=== PATIENT | male | born 1985 | race American Indian/Alaskan Native ===

== ENCOUNTER 2018-06-04 19:34 | Emergency (ER) | payer SELFPAY ==
[2018-06-04 19:42] VITALS: BP 122/76; PULSE 84; TEMP 99; BMI 20.9
--- NOTE | 2018-06-04 20:02 | PDOC ---
History of Present Illness - General Chief Complaint: Wound Stated Complaint: ABSCESS Time Seen by Provider: 06/04/18 19:54 - History of Present Illness Initial Comments: 33-year-old male denies comorbidities presents for evaluation of a painful mass on his right buttock 3 days. No other associated symptoms. 06/04/18 19:59 Past History - Past Medical History Allergies/Adverse Reactions: Allergies Allergy/AdvReac Type Severity Reaction Status Date / Time No Known Allergies Allergy Verified 06/04/18 19:42 Home Medications: Ambulatory Orders Benztropine Mesylate [Cogentin -] 1 mg PO BID #60 tablet 04/13/17 Haloperidol [Haldol -] 5 mg PO BID #60 tablet 04/13/17 traZODone HCL [Trazodone HCl] 100 mg PO HS #30 tablet 04/13/17 Buspirone HCl [Buspar -] 10 mg PO DAILY #90 tablet MDD 3 04/20/17 Divalproex *ER* [Depakote *ER* -] 250 mg PO TID #15 tablet.sa MDD 3 05/11/17 Clotrimazole [Lotrimin -] 1 applic TP BID #1 tube 02/05/18 Emtricitab/Rilpiviri/Tenof Ala [Odefsey Tablet] 1 tab PO DAILY #30 tablet Multivitamin,Ther and Minerals [Vitamin and Minerals] 1 tab PO DAILY #30 tablet 02/05/18 Cephalexin [Keflex] 500 mg PO QID #40 capsule 06/04/18 Ibuprofen [Motrin -] 600 mg PO TID #30 tablet 06/04/18 Sulfamethoxazole/Trimethoprim [Bactrim Ds -] 1 tab PO BID #14 tablet 06/04/18 Anemia: Yes Asthma: No Cancer: No Cardiac Disorders: No CVA: No COPD: No CHF: No Dementia: No Diabetes: No GI Disorders: Yes (?hemorrhoids) Disorders: Yes (hx abscess??) HTN: No Hypercholesterolemia: No Liver Disease: No Seizures: No Thyroid Disease: No - Suicide/Smoking/Psychosocial Hx Smoking Status: No Smoking History: Unknown if ever smoked Have you smoked in the past 12 months: No Number of Cigarettes Smoked Daily: 0 Cigars Per Day: 0 Information on smoking cessation initiated: No Hx Alcohol Use: Yes Drug/Substance Use Hx: No Substance Use Type: Alcohol Hx Substance Use Treatment: No Review of Systems - Review of Systems Integumentary: Yes: See HPI, Lesions All Other Systems: Reviewed and Negative *Physical Exam - Vital Signs Last Vital Signs Temp Pulse Resp BP Pulse Ox 99.0 F 84 17 122/76 99 06/04/18 19:39 06/04/18 19:39 06/04/18 19:39 06/04/18 19:39 06/04/18 19:39 - Physical Exam Comments: Right buttock skin is mildly ear thymic there is a tender nonfluctuant indurated area with central eschar which is dry without drainage. The surrounding skin is normal color and temperature.. The mass is about 2 cm in circumference 06/04/18 20:00 Medical Decision Making - Medical Decision Making This is a hard indurated cellulitis I recommended warm compresses I placed him on by mouth and Bactrim and Keflex I will have her follow-up with general surgery should he require I&D with always the option to return to the emergency room for I&D is needed 06/04/18 20:00 *DC/Admit/Observation/Transfer Diagnosis at time of Disposition: Cellulitis and abscess of buttock - Discharge Dispostion Disposition: HOME Condition at time of disposition: Stable Decision to Admit order: No - Referrals Referrals: Caity Lopez MD [Staff Physician] - - Patient Instructions Additional Instructions: Warm compresses in the area 5-6 times a day. Please take the antibiotics as directed. Follow-up with general surgery in 2-3 days for further evaluation and treatment options. The Motrin will help with your pain its 3 times a day with food. Stop the medication if it bothers her stomach. Please finish all the antibiotics as directed. If the area becomes soft and starts to drain please come back to the emergency room. In the meantime follow-up with general surgery in 2-3 days for further evaluation and treatment options. - Post Discharge Activity
== END 2018-06-04 20:11 | disposition home or self-care (01) ==
LOC: JERFT 19:34
DX: L03.317 Cellulitis of buttock (principal)
CPT/HCPCS: 99281-25

== ENCOUNTER 2018-08-25 17:42 | Emergency (ER) | payer SELFPAY ==
[2018-08-25 17:50] VITALS: BP 118/80; PULSE 83; TEMP 98.5; BMI 20.9
[2018-08-25] MEDS ORDERED: LIDOCAINE 1%/EPI 1:100000 (50 ML MULTI DOSE VIAL) INF ONE (18:31)
--- NOTE | 2018-08-25 18:41 | PDOC ---
History of Present Illness - General Chief Complaint: Abscess Boil Stated Complaint: WOUND History Source: Patient Exam Limitations: No Limitations - History of Present Illness Initial Comments: 08/25/18 18:32 Patient is 33 year old male with h/o bipolar disorder, HIV +, c/o painfull swelling which is draining to the right hip x 1 week. States recently has been having these swelling which open now area healed but they still hurt. States pain is a soreness 5/10 worse if his clothes touch the area. Denies fever, chills, nausea, vomiting. PMHX: as above PSOCHX: substance abuse ALL: NKDA Review of Systems: GENERAL/CONSTITUTIONAL: No fever or chills. No weakness. No weight change. HEAD, EYES, EARS, NOSE AND THROAT: No change in vision. No ear pain or discharge. No sore throat. CARDIOVASCULAR: No chest pain or shortness of breath. RESPIRATORY: No cough, wheezing, or hemoptysis. GASTROINTESTINAL: No nausea, vomiting, diarrhea or constipation. No rectal bleeding. GENITOURINARY: No dysuria, frequency, or change in urination. MUSCULOSKELETAL: No joint or muscle swelling or pain. No neck or back pain. SKIN AND BREASTS: No rash or easy bruising. NEUROLOGIC: No headache, vertigo, loss of consciousness, or loss of sensation. PSYCHIATRIC: (+) depression or anxiety. ENDOCRINE: No increased thirst. No abnormal weight change. HEMATOLOGIC/LYMPHATIC: No anemia, easy bleeding, or history of blood clots. ALLERGIC/IMMUNOLOGIC: No hives or skin allergy. No latex allergy. GENERAL: [The patient is awake, alert, and fully oriented, in no acute distress. ] HEAD: [Normal with no signs of trauma.] EYES: [Pupils equal, round and reactive to light, extraocular movements intact, sclera anicteric, conjunctiva clear.] ENT: [Ears normal, nares patent, oropharynx clear without exudates. Moist mucous membranes.] NECK: [Normal range of motion, supple without lymphadenopathy, JVD, or masses.] LUNGS: [Breath sounds equal, clear to auscultation bilaterally. No wheezes, and no crackles.] HEART: [Regular rate and rhythm, normal S1 and S2 without murmur, rub.] ABDOMEN: [Soft, nontender, normoactive bowel sounds. No guarding, no rebound. No masses.] EXTREMITIES: [Normal range of motion, no edema. No clubbing or cyanosis. No cords, erythema, or tenderness.] NEUROLOGICAL: [Cranial nerves II through XII grossly intact. Normal speech, normal gait.] PSYCH: [Normal mood, normal affect.] SKIN: (+) tender, large abscess with blood and purulent discharge. Past History - Past Medical History Allergies/Adverse Reactions: Allergies Allergy/AdvReac Type Severity Reaction Status Date / Time No Known Allergies Allergy Verified 08/25/18 17:50 Home Medications: Ambulatory Orders Benztropine Mesylate [Cogentin -] 1 mg PO BID #60 tablet 04/13/17 Haloperidol [Haldol -] 5 mg PO BID #60 tablet 04/13/17 traZODone HCL [Trazodone HCl] 100 mg PO HS #30 tablet 04/13/17 Buspirone HCl [Buspar -] 10 mg PO DAILY #90 tablet MDD 3 04/20/17 Divalproex *ER* [Depakote *ER* -] 250 mg PO TID #15 tablet.sa MDD 3 05/11/17 Clotrimazole [Lotrimin -] 1 applic TP BID #1 tube 02/05/18 Emtricitab/Rilpiviri/Tenof Ala [Odefsey Tablet] 1 tab PO DAILY #30 tablet Anemia: Yes Asthma: No Cancer: No Cardiac Disorders: No CVA: No COPD: No CHF: No Dementia: No Diabetes: No GI Disorders: Yes (?hemorrhoids) Disorders: Yes (hx abscess??) HTN: No Hypercholesterolemia: No Liver Disease: No Seizures: No Thyroid Disease: No - Suicide/Smoking/Psychosocial Hx Smoking Status: No Smoking History: Unknown if ever smoked Have you smoked in the past 12 months: No Number of Cigarettes Smoked Daily: 0 Cigars Per Day: 0 Hx Alcohol Use: Yes Drug/Substance Use Hx: No Substance Use Type: Alcohol Hx Substance Use Treatment: No *Physical Exam - Vital Signs Last Vital Signs Temp Pulse Resp BP Pulse Ox 98.5 F 83 18 118/80 99 08/25/18 17:48 08/25/18 17:48 08/25/18 17:48 08/25/18 17:48 08/25/18 17:48 Moderate Sedation - Procedure Monitoring Vital Signs: Procedure Monitoring Vital Signs Temperature 98.5 F 08/25/18 17:48 Pulse Rate 83 08/25/18 17:48 Respiratory Rate 18 08/25/18 17:48 Blood Pressure 118/80 08/25/18 17:48 O2 Sat by Pulse Oximetry (%) 99 08/25/18 17:48 Medical Decision Making - Medical Decision Making 08/25/18 18:32 Patient is 33 year old male with h/o bipolar disorder, HIV +, c/o painfull swelling which is draining to the right hip x 1 week. infiltrated lidocaine and expressed some the abscess, moderate amount of drainage. Patient requesting for me to stop expressing the wound I discussed the physical exam findings, ancillary test results and final diagnoses with the patient. I answered all of the patient's questions. The patient was satisfied with the care received and felt comfortable with the discharge plan and treatment plan. The Patient agrees to follow up with the primary care physician within 24-72 hours. Inst patient to continue warm compress and express the wound. *DC/Admit/Observation/Transfer Diagnosis at time of Disposition: Abscess - Discharge Dispostion Disposition: HOME Condition at time of disposition: Stable - Referrals - Patient Instructions Printed Discharge Instructions: DI for Incision and Drainage of a Skin Abscess Additional Instructions: Your Discharge Instructions: You must call primary care physician within 24 hours to arrange follow-up. Return to the Emergency Department with any new, persistent or worsening symptoms, for fever, chills, SOB, dizziness or any other concerning changes that may occur. warm compress to the area then express the discharge from the wound. - Post Discharge Activity
== END 2018-08-25 19:29 | disposition home or self-care (01) ==
LOC: JERFT 17:42
DX: L02.415 Cutaneous abscess of right lower limb (principal); F31.9 Bipolar disorder, unspecified; Z21 Asymptomatic human immunodeficiency virus [HIV] infection status
CPT/HCPCS: 87070; 87077; 87186; 87205; 99281-25

== ENCOUNTER 2023-07-10 12:43 | Inpatient (IN) | payer OTHER ==
[2023-07-10] MEDS ORDERED: ACETAMINOPHEN 1000 MG/100 ML BAG IVPB ONE (15:01)
[2023-07-10] MEDS ORDERED: PIPERACILLIN/TAZOB 4.5 GM 4.5 GM in DEXTROSE 5%-WATER 100 ML IVPB ONE (15:03)
[2023-07-10] MEDS ORDERED: VANCOMYCIN 1,000 MG in DEXTROSE 5%-WATER - 250 ML IVPB ONE (15:03)
[2023-07-10] MEDS ORDERED: ACETAMINOPHEN INJECTION 100 ML IVPB ONE (15:47)
[2023-07-10] MEDS ORDERED: PIPERACILLIN/TAZOB 4.5 GM 4.5 GM/100 ML BAG IVPB ONE (15:48)
[2023-07-10] MEDS ORDERED: VANCOMYCIN 1 GRAM (PRE-DOCKED) 1,000 MG/250 ML BAG IVPB ONE ×2 (15:49→17:07)
[2023-07-10 16:04] LABS: VENOUS O2 SATURATION 80.7 % (70-80); VENOUS PH 7.435 (7.310-7.410)
[2023-07-10 16:09] LABS: HEMATOCRIT 38.7 % (35.4-49); HEMOGLOBIN 13.3 GM/dL (11.7-16.9); MCH 29.1 pg (25.7-33.7); MCHC 34.3 g/dl (32.0-35.9); MEAN CELL VOLUME 84.7 fl (80-96); PLATELET COUNT 319 10^3/uL (134-434); RBC 4.57 M/mm3 (4.00-5.60); RDW 13.8 % (11.9-15.9); WHITE BLOOD COUNT 8.2 K/mm3 (4.0-10.0)
[2023-07-10 16:18] LABS: INR 1.15 (0.83-1.09); PROTHROMBIN TIME (PATIENT) 13.3 SEC (9.7-13.0)
[2023-07-10 16:21] LABS: ACTIVATED PTT 32.9 SECONDS (25.2-36.5)
[2023-07-10 16:22] LABS: POTASSIUM 3.9 mmol/L (3.5-5.1)
[2023-07-10 16:25] LABS: ALBUMIN 3.8 g/dl (3.4-5.0); CALCIUM 8.7 mg/dL (8.5-10.1)
[2023-07-10 16:26] LABS: BLOOD UREA NITROGEN 13.8 mg/dL (7-18)
[2023-07-10 16:30] LABS: BILIRUBIN,TOTAL 0.9 mg/dL (0.2-1); TOT PROT 8.8 g/dl (6.4-8.2)
[2023-07-10] MEDS: VANCOMYCIN 1,000 MG in DEXTROSE 5%-WATER - 250 ML IVPB SCH (22:37)
[2023-07-10] MEDS ORDERED: PIPERACILLIN/TAZOB 3.375 GM 3.375 GM/50 ML BAG IVPB ONE (22:39)
[2023-07-10] MEDS: SODIUM CHLORIDE 1,000 ML IV SCH (22:51)
[2023-07-10] MEDS: PIPERACILLIN/TAZOB 3.375 GM 3.375 GM in DEXTROSE 5%-WATER - 50 ML IVPB SCH ×2 (22:52→22:54)
[2023-07-11] MEDS ORDERED: ACETAMINOPHEN 1000 MG/100 ML BAG IVPB ONE (00:56)
[2023-07-11] MEDS: SODIUM CHLORIDE 1,000 ML IV SCH ×2 (04:24→22:57)
[2023-07-11] MEDS: PIPERACILLIN/TAZOB 3.375 GM 3.375 GM in DEXTROSE 5%-WATER - 50 ML IVPB SCH ×4 (04:24→18:41)
[2023-07-11] MEDS ORDERED: VANCOMYCIN 1 GRAM (PRE-DOCKED) 1,000 MG/250 ML BAG IVPB SCH (05:00)
[2023-07-11 06:10] VITALS: BMI 20.5
[2023-07-11] MEDS ORDERED: CITALOPRAM HYDROBROMIDE 20 MG TABLET PO SCH (07:00)
[2023-07-11] MEDS ORDERED: CITALOPRAM HYDROBROMIDE 10 MG TABLET PO SCH (10:00)
[2023-07-11] MEDS ORDERED: MUPIROCIN CA 2% TOPICAL CREAM 15 GM TUBE TP SCH (10:00)
[2023-07-11] MEDS ORDERED: ENOXAPARIN NA (PORCINE) 40 MG/0.4 ML DISP.SYRIN SQ SCH (10:00)
[2023-07-11 10:18] LABS: HEMATOCRIT 35.4 % (35.4-49); HEMOGLOBIN 12.3 GM/dL (11.7-16.9); MCH 29.2 pg (25.7-33.7); MCHC 34.8 g/dl (32.0-35.9); MEAN CELL VOLUME 83.9 fl (80-96); PLATELET COUNT 288 10^3/uL (134-434); RBC 4.22 M/mm3 (4.00-5.60); RDW 13.7 % (11.9-15.9); WHITE BLOOD COUNT 8.9 K/mm3 (4.0-10.0)
[2023-07-11 11:19] LABS: POTASSIUM 4.4 mmol/L (3.5-5.1)
[2023-07-11] MEDS: BICTEGRAV/EMTRICIT/TENOFOV (BIKTARVY) 50-200-25 MG TABLET PO SCH (11:25)
[2023-07-11 11:39] LABS: BLOOD UREA NITROGEN 15.1 mg/dL (7-18); CALCIUM 8.4 mg/dL (8.5-10.1); MAGNESIUM 2.3 mg/dL (1.8-2.4)
[2023-07-11 11:42] LABS: PHOSPHOROUS 2.9 mg/dL (2.5-4.9)
[2023-07-11 11:43] LABS: BILIRUBIN,TOTAL 0.8 mg/dL (0.2-1); TOT PROT 7.6 g/dl (6.4-8.2)
[2023-07-11] MEDS: ACETAMINOPHEN 325 MG TABLET (FP) PO PRN ×3 (13:10→23:14)
[2023-07-11] MEDS: VANCOMYCIN/WATER FOR INJ (PEG) 1,000 MG/200 ML BAG IVPB SCH (16:34)
[2023-07-11] MEDS: VANCOMYCIN 1,000 MG in DEXTROSE 5%-WATER - 250 ML IVPB SCH (17:14)
[2023-07-11] MEDS ORDERED: CHLORHEXIDINE GLUCONATE 4% CLEANSER FOR DECOLONIZATION TP SCH (22:00)
[2023-07-11] MEDS ORDERED: traZODone HCL 50 MG TABLET (FP) PO SCH (22:00)
[2023-07-12] MEDS: PIPERACILLIN/TAZOB 3.375 GM 3.375 GM in DEXTROSE 5%-WATER - 50 ML IVPB SCH ×4 (01:58→17:35)
[2023-07-12] MEDS: VANCOMYCIN/WATER FOR INJ (PEG) 1,000 MG/200 ML BAG IVPB SCH ×2 (03:18→15:27)
[2023-07-12] MEDS: BICTEGRAV/EMTRICIT/TENOFOV (BIKTARVY) 50-200-25 MG TABLET PO SCH (08:01)
[2023-07-12] MEDS: ACETAMINOPHEN 325 MG TABLET (FP) PO PRN (08:37)
[2023-07-12] MEDS ORDERED: BUPIVACAINE HCL/PF 0.5% (5MG/ML) 10 ML VIAL ONE (08:46)
[2023-07-12] MEDS ORDERED: LIDOCAINE HCL 1%, 10 MG/ML (20ML VIAL) ONE (08:46)
[2023-07-12 09:25] LABS: HEMATOCRIT 38.6 % (35.4-49); HEMOGLOBIN 12.9 GM/dL (11.7-16.9); MCH 28.8 pg (25.7-33.7); MCHC 33.5 g/dl (32.0-35.9); MEAN CELL VOLUME 86.1 fl (80-96); PLATELET COUNT 319 10^3/uL (134-434); RBC 4.48 M/mm3 (4.00-5.60); RDW 13.9 % (11.9-15.9); WHITE BLOOD COUNT 7.4 K/mm3 (4.0-10.0)
[2023-07-12 09:42] LABS: POTASSIUM 4.2 mmol/L (3.5-5.1)
[2023-07-12] MEDS ORDERED: LIDOCAINE HCL/PF 2% SDV 5ML VIAL ONE (09:42)
[2023-07-12] MEDS ORDERED: PROPOFOL 20 ML ONE (09:42)
[2023-07-12] MEDS ORDERED: FENTANYL CITRATE/PF 50 MCG/ML VIAL ONE ×3 (09:42→11:30)
[2023-07-12] MEDS ORDERED: MIDAZOLAM HCL 2 MG/2 ML SINGLE DOSE VIAL ONE (09:43)
[2023-07-12 09:47] LABS: ALBUMIN 3.3 g/dl (3.4-5.0); CALCIUM 8.7 mg/dL (8.5-10.1)
[2023-07-12 09:48] LABS: BLOOD UREA NITROGEN 6.9 mg/dL (7-18); MAGNESIUM 2.2 mg/dL (1.8-2.4)
[2023-07-12 09:50] LABS: PHOSPHOROUS 3.2 mg/dL (2.5-4.9)
[2023-07-12 09:51] LABS: TOT PROT 8.5 g/dl (6.4-8.2)
[2023-07-12 09:52] LABS: BILIRUBIN,TOTAL 0.7 mg/dL (0.2-1)
[2023-07-12] MEDS ORDERED: DEXAMETHASONE SOD PHOSPHATE 4 MG/1 ML VIAL ONE (10:13)
[2023-07-12] MEDS ORDERED: ONDANSETRON 4 MG/2 ML VIAL ONE (10:13)
[2023-07-12] MEDS ORDERED: ONDANSETRON 4 MG/2 ML VIAL IVPUSH PRN (10:58)
[2023-07-12] MEDS ORDERED: ACETAMINOPHEN 325 MG TABLET (FP) PO PRN (10:58)
[2023-07-12] MEDS ORDERED: KETOROLAC TROMETHAMINE 30 MG/1 ML VIAL IVPUSH PRN (10:59)
[2023-07-12] MEDS ORDERED: SODIUM CHLORIDE 1,000 ML IV SCH (11:00)
[2023-07-12] MEDS ORDERED: KETOROLAC TROMETHAMINE 30 MG/1 ML VIAL ONE (11:12)
[2023-07-12 12:39] VITALS: RESP 18
[2023-07-12] MEDS: MUPIROCIN 2% TOPICAL OINTMENT FOR DECOLONIZATION NS SCH ×2 (16:28→16:29)
[2023-07-12] MEDS ORDERED: PIPERACILLIN/TAZOB 3.375 GM 3.375 GM in DEXTROSE 5%-WATER - 50 ML IVPB SCH (18:00)
[2023-07-12] MEDS: traZODone HCL 50 MG TABLET (FP) PO SCH (21:42)
[2023-07-12] MEDS ORDERED: MUPIROCIN 2% TOPICAL OINTMENT FOR DECOLONIZATION NS SCH (22:00)
[2023-07-13] MEDS: PIPERACILLIN/TAZOB 3.375 GM 3.375 GM in DEXTROSE 5%-WATER - 50 ML IVPB SCH ×3 (01:51→18:57)
[2023-07-13] MEDS: VANCOMYCIN/WATER FOR INJ (PEG) 1,000 MG/200 ML BAG IVPB SCH ×2 (02:39→15:53)
[2023-07-13] MEDS ORDERED: PIPERACILLIN/TAZOBACTAM 3.375 GM VIAL IVPB ONE (08:32)
[2023-07-13] MEDS: ENOXAPARIN NA (PORCINE) 40 MG/0.4 ML DISP.SYRIN SQ SCH (10:20)
[2023-07-13] MEDS: BICTEGRAV/EMTRICIT/TENOFOV (BIKTARVY) 50-200-25 MG TABLET PO SCH (10:20)
[2023-07-13 10:43] LABS: BASO % 0.7 % (0-2.0); EOS % 0.4 % (0-4.5); HEMATOCRIT 34.2 % (35.4-49); HEMOGLOBIN 11.5 GM/dL (11.7-16.9); LYMPH % 33.9 % (8-40); MCH 28.8 pg (25.7-33.7); MCHC 33.7 g/dl (32.0-35.9); MEAN CELL VOLUME 85.5 fl (80-96); MEAN PLT VOLUME 8.1 fl (7.5-11.1); MONO % 5.9 % (3.8-10.2); NEUT % 59.1 % (42.8-82.8); PLATELET COUNT 292 10^3/uL (134-434); RDW 13.8 % (11.9-15.9); WHITE BLOOD COUNT 7.6 K/mm3 (4.0-10.0)
[2023-07-13 11:07] LABS: CALCIUM 8.2 mg/dL (8.5-10.1)
[2023-07-13 11:08] LABS: BLOOD UREA NITROGEN 9.3 mg/dL (7-18)
[2023-07-13 11:10] LABS: CREATININE 0.8 mg/dL (0.55-1.3)
[2023-07-13] MEDS ORDERED: ACETAMINOPHEN 1000 MG/100 ML BAG IVPB PRN (13:49)
[2023-07-13] MEDS ORDERED: KETOROLAC TROMETHAMINE 15 MG/ML VIAL IVPUSH PRN (13:52)
[2023-07-13] MEDS: traMADol HCL 50 MG TABLET PO PRN (14:16)
[2023-07-13] MEDS: ACETAMINOPHEN 500 MG TABLET (FP) PO SCH (16:44)
[2023-07-13] MEDS ORDERED: INSULIN (LEVEMIR) 100 UNITS/ML UNITS SQ ONE (19:26)
[2023-07-13] MEDS: traZODone HCL 50 MG TABLET (FP) PO SCH (21:30)
[2023-07-14] MEDS: ACETAMINOPHEN 500 MG TABLET (FP) PO SCH ×4 (01:40→18:29)
[2023-07-14] MEDS: PIPERACILLIN/TAZOB 3.375 GM 3.375 GM in DEXTROSE 5%-WATER - 50 ML IVPB SCH ×2 (01:45→09:10)
[2023-07-14] MEDS: VANCOMYCIN/WATER FOR INJ (PEG) 1,000 MG/200 ML BAG IVPB SCH ×2 (02:47→15:40)
[2023-07-14] MEDS ORDERED: INSULIN (LEVEMIR) 100 UNITS/ML UNITS SQ ONE (06:58)
[2023-07-14] MEDS: ENOXAPARIN NA (PORCINE) 40 MG/0.4 ML DISP.SYRIN SQ SCH (09:10)
[2023-07-14] MEDS: BICTEGRAV/EMTRICIT/TENOFOV (BIKTARVY) 50-200-25 MG TABLET PO SCH (09:10)
[2023-07-14 10:29] LABS: HEMATOCRIT 37.2 % (35.4-49); HEMOGLOBIN 12.3 GM/dL (11.7-16.9); MCH 28.3 pg (25.7-33.7); MCHC 33.1 g/dl (32.0-35.9); MEAN CELL VOLUME 85.3 fl (80-96); MEAN PLT VOLUME 8.1 fl (7.5-11.1); PLATELET COUNT 343 10^3/uL (134-434); RBC 4.36 M/mm3 (4.00-5.60); RDW 13.7 % (11.9-15.9); WHITE BLOOD COUNT 3.9 K/mm3 (4.0-10.0)
[2023-07-14 10:39] LABS: POTASSIUM 4.4 mmol/L (3.5-5.1)
[2023-07-14 10:48] LABS: ALBUMIN 2.9 g/dl (3.4-5.0)
[2023-07-14 10:49] LABS: BLOOD UREA NITROGEN 7.4 mg/dL (7-18); CALCIUM 8.6 mg/dL (8.5-10.1)
[2023-07-14 10:51] LABS: CREATININE 0.7 mg/dL (0.55-1.3)
[2023-07-14 10:53] LABS: BILIRUBIN,TOTAL 0.4 mg/dL (0.2-1); TOT PROT 7.6 g/dl (6.4-8.2)
[2023-07-14] MEDS: traZODone HCL 50 MG TABLET (FP) PO SCH (21:39)
[2023-07-14] MEDS: SULFAMETHOXAZOLE/TRIMETHOPRIM 800MG/160MG D.S. TABLET PO SCH (21:39)
[2023-07-15] MEDS: ACETAMINOPHEN 500 MG TABLET (FP) PO SCH ×4 (00:16→17:10)
[2023-07-15] MEDS: BICTEGRAV/EMTRICIT/TENOFOV (BIKTARVY) 50-200-25 MG TABLET PO SCH (08:52)
[2023-07-15 09:36] LABS: HEMATOCRIT 36.5 % (35.4-49); HEMOGLOBIN 12.3 GM/dL (11.7-16.9); MCH 28.8 pg (25.7-33.7); MCHC 33.8 g/dl (32.0-35.9); MEAN CELL VOLUME 85.1 fl (80-96); MEAN PLT VOLUME 7.8 fl (7.5-11.1); PLATELET COUNT 360 10^3/uL (134-434); RBC 4.28 M/mm3 (4.00-5.60); RDW 13.8 % (11.9-15.9); WHITE BLOOD COUNT 3.5 K/mm3 (4.0-10.0)
[2023-07-15] MEDS: SULFAMETHOXAZOLE/TRIMETHOPRIM 800MG/160MG D.S. TABLET PO SCH ×2 (09:36→22:36)
[2023-07-15] MEDS: ENOXAPARIN NA (PORCINE) 40 MG/0.4 ML DISP.SYRIN SQ SCH (09:36)
[2023-07-15 09:52] LABS: POTASSIUM 3.9 mmol/L (3.5-5.1)
[2023-07-15 09:58] LABS: ALBUMIN 2.8 g/dl (3.4-5.0)
[2023-07-15 10:00] LABS: CALCIUM 8.5 mg/dL (8.5-10.1)
[2023-07-15 10:01] LABS: BLOOD UREA NITROGEN 10.8 mg/dL (7-18); MAGNESIUM 1.8 mg/dL (1.8-2.4)
[2023-07-15 10:02] LABS: PHOSPHOROUS 2.9 mg/dL (2.5-4.9)
[2023-07-15 10:03] LABS: BILIRUBIN,TOTAL 0.2 mg/dL (0.2-1); TOT PROT 7.4 g/dl (6.4-8.2)
[2023-07-15 10:04] LABS: CREATININE 0.9 mg/dL (0.55-1.3)
[2023-07-15] MEDS: traZODone HCL 50 MG TABLET (FP) PO SCH (22:36)
[2023-07-16] MEDS: ACETAMINOPHEN 500 MG TABLET (FP) PO SCH ×4 (00:56→17:09)
[2023-07-16] MEDS: traMADol HCL 50 MG TABLET PO PRN (04:08)
[2023-07-16] MEDS: BICTEGRAV/EMTRICIT/TENOFOV (BIKTARVY) 50-200-25 MG TABLET PO SCH (09:00)
[2023-07-16] MEDS: SULFAMETHOXAZOLE/TRIMETHOPRIM 800MG/160MG D.S. TABLET PO SCH ×2 (09:20→21:46)
[2023-07-16] MEDS: ENOXAPARIN NA (PORCINE) 40 MG/0.4 ML DISP.SYRIN SQ SCH (09:20)
[2023-07-16 09:37] LABS: HEMATOCRIT 36.4 % (35.4-49); HEMOGLOBIN 12.7 GM/dL (11.7-16.9); MCH 29.4 pg (25.7-33.7); MEAN CELL VOLUME 84.2 fl (80-96); MEAN PLT VOLUME 7.6 fl (7.5-11.1); PLATELET COUNT 394 10^3/uL (134-434); RBC 4.32 M/mm3 (4.00-5.60); RDW 13.6 % (11.9-15.9); WHITE BLOOD COUNT 4.3 K/mm3 (4.0-10.0)
[2023-07-16] MEDS: traZODone HCL 50 MG TABLET (FP) PO SCH (21:46)
[2023-07-17] MEDS: ACETAMINOPHEN 500 MG TABLET (FP) PO SCH ×3 (00:15→14:06)
[2023-07-17] MEDS: BICTEGRAV/EMTRICIT/TENOFOV (BIKTARVY) 50-200-25 MG TABLET PO SCH (08:07)
[2023-07-17] MEDS: ENOXAPARIN NA (PORCINE) 40 MG/0.4 ML DISP.SYRIN SQ SCH (09:16)
[2023-07-17] MEDS: SULFAMETHOXAZOLE/TRIMETHOPRIM 800MG/160MG D.S. TABLET PO SCH (09:16)
[2023-07-17] MEDS ORDERED: diphenhydrAMINE HCL 25 MG CAPSULE (FP) PO ONE (10:45)
[2023-07-17 11:13] LABS: BASO % 0.9 % (0-2.0); EOS % 0.4 % (0-4.5); HEMATOCRIT 35.6 % (35.4-49); HEMOGLOBIN 12.8 GM/dL (11.7-16.9); LYMPH % 37.5 % (8-40); MEAN CELL VOLUME 83.4 fl (80-96); MEAN PLT VOLUME 7.4 fl (7.5-11.1); NEUT % 55.2 % (42.8-82.8); PLATELET COUNT 417 10^3/uL (134-434); RBC 4.27 M/mm3 (4.00-5.60); RDW 13.7 % (11.9-15.9); WHITE BLOOD COUNT 4.2 K/mm3 (4.0-10.0)
[2023-07-17] MEDS ORDERED: HYDROCORTISONE 1% TOPICAL CREAM 30 GM TUBE TP SCH (11:15)
[2023-07-17 11:30] LABS: POTASSIUM 4.5 mmol/L (3.5-5.1)
[2023-07-17 11:31] LABS: CALCIUM 8.6 mg/dL (8.5-10.1)
[2023-07-17 11:32] LABS: BLOOD UREA NITROGEN 8.8 mg/dL (7-18)
[2023-07-17 11:35] LABS: CREATININE 1.1 mg/dL (0.55-1.3)
[2023-07-17 12:38] VITALS: BP 120/70; PULSE 73; TEMP 98.4
== END 2023-07-17 14:19 | disposition home or self-care (01) | DRG 894 ==
LOC: JER 12:43 → JERBED 18:29 → J6S 07-11 04:16
PROVIDERS: ADMIT Internal Medicine; ATTEND Internal Medicine
PROC: 0J9L0ZX Drainage of Right Upper Leg Subcutaneous Tissue and Fascia, Open Approach, Diagnostic (ICD-10-PCS; 2023-07-12)
PROC: 3E10X8Z Irrigation of Skin and Mucous Membranes using Irrigating Substance (ICD-10-PCS; principal; 2023-07-12 09:30)
DX: L02.415 Cutaneous abscess of right lower limb (principal); L03.115 Cellulitis of right lower limb; B20 Human immunodeficiency virus [HIV] disease; L02.214 Cutaneous abscess of groin; G47.00 Insomnia, unspecified; F32.A Depression, unspecified; K29.60 Other gastritis without bleeding; K62.89 Other specified diseases of anus and rectum; Z91.199 Patient's noncompliance with other medical treatment and regimen due to unspecified reason; Z22.322 Carrier or suspected carrier of Methicillin resistant Staphylococcus aureus
CPT/HCPCS: 36415; 74177-TC; 80048; 80053; 82803; 83605; 83735; 84100; 85025; 85027; 85610; 85651; 85730; 86140; 86359; 86360; 86850; 86900; 86901; 87040; 87070; 87081; 87186; 87205; 87536; 93005; 93010; 94760; 99285-25; G0480

== ENCOUNTER 2024-02-03 00:20 | Inpatient (IN) | payer OTHER ==
[2024-02-03] MEDS ORDERED: PIPERACILLIN/TAZOB 3.375 GM 3.375 GM/50 ML BAG IVPB ONE (01:35)
[2024-02-03] MEDS: PIPERACILLIN/TAZOB 3.375 GM 3.375 GM in DEXTROSE 5%-WATER - 50 ML IVPB ONE (01:40)
[2024-02-03 01:43] LABS: BASO % 0.7 % (0-2.0); EOS % 0.8 % (0-4.5); HEMATOCRIT 34.4 % (35.4-49); HEMOGLOBIN 11.9 GM/dL (11.7-16.9); LYMPH % 22.9 % (8-40); MCH 29.5 pg (25.7-33.7); MCHC 34.6 g/dl (32.0-35.9); MEAN CELL VOLUME 85.4 fl (80-96); MEAN PLT VOLUME 7.3 fl (7.5-11.1); MONO % 4.3 % (3.8-10.2); NEUT % 71.3 % (42.8-82.8); PLATELET COUNT 427 10^3/uL (134-434); RBC 4.03 M/mm3 (4.00-5.60); URINE APPEARANCE CLEAR; URINE BILIRUBIN NEGATIVE (NEGATIVE); URINE COLOR YELLOW; URINE GLUCOSE (UA) NEGATIVE (NEGATIVE); URINE KETONE TRACE (NEGATIVE); URINE LEUK ESTERASE NEGATIVE (NEGATIVE); URINE NITRITE NEGATIVE (NEGATIVE); URINE PROTEIN NEGATIVE (NEGATIVE); URINE UROBILINOGEN 0.2 mg/dL (0.2-1.0); WHITE BLOOD COUNT 9.6 K/mm3 (4.0-10.0)
[2024-02-03 02:06] LABS: POTASSIUM 5.2 mmol/L (3.5-5.1)
[2024-02-03 02:07] LABS: CALCIUM 8.7 mg/dL (8.5-10.1)
[2024-02-03 02:08] LABS: BLOOD UREA NITROGEN 10.2 mg/dL (7-18)
[2024-02-03 02:11] LABS: CREATININE 0.9 mg/dL (0.55-1.3)
[2024-02-03 02:12] LABS: BILIRUBIN,TOTAL 0.3 mg/dL (0.2-1); TOT PROT 7.3 g/dl (6.4-8.2)
[2024-02-03 02:19] LABS: ERYTHROCYTE SEDIMENTATION RATE 36 mm/hr (0-10)
[2024-02-03] MEDS ORDERED: ACETAMINOPHEN INJECTION 100 ML IVPB ONE (02:36)
[2024-02-03] MEDS: ACETAMINOPHEN 1000 MG/100 ML BAG IVPB ONE (02:45)
[2024-02-03] MEDS: VANCOMYCIN 1,000 MG in DEXTROSE 5%-WATER - 250 ML IVPB ONE (02:55)
[2024-02-03 05:52] VITALS: BMI 21.4
[2024-02-03] MEDS: ACETAMINOPHEN 1000 MG/100 ML BAG IVPB PRN ×2 (06:30→21:32)
[2024-02-03 07:58] LABS: HEMATOCRIT 33.4 % (35.4-49); HEMOGLOBIN 11.2 GM/dL (11.7-16.9); MCH 28.9 pg (25.7-33.7); MCHC 33.6 g/dl (32.0-35.9); PLATELET COUNT 366 10^3/uL (134-434); RBC 3.89 M/mm3 (4.00-5.60); RDW 13.9 % (11.9-15.9); WHITE BLOOD COUNT 11.1 K/mm3 (4.0-10.0)
[2024-02-03 08:21] LABS: POTASSIUM 4.2 mmol/L (3.5-5.1)
[2024-02-03 08:23] LABS: BLOOD UREA NITROGEN 12.4 mg/dL (7-18); CALCIUM 8.6 mg/dL (8.5-10.1)
[2024-02-03 08:27] LABS: CREATININE 0.8 mg/dL (0.55-1.3)
[2024-02-03 09:12] LABS: ERYTHROCYTE SEDIMENTATION RATE 37 mm/hr (0-10)
[2024-02-03] MEDS: BICTEGRAV/EMTRICIT/TENOFOV (BIKTARVY) 50-200-25 MG TABLET PO SCH (09:49)
[2024-02-03] MEDS ORDERED: PROMETHAZINE HCL 25 MG/1 ML VIAL IVPB PRN (09:54)
[2024-02-03] MEDS ORDERED: ONDANSETRON 4 MG/2 ML VIAL IVPUSH PRN (09:54)
[2024-02-03] MEDS ORDERED: FENTANYL CITRATE/PF 50 MCG/ML VIAL ONE ×3 (10:07→10:55)
[2024-02-03] MEDS ORDERED: LIDOCAINE HCL/PF 2% SDV 5ML VIAL ONE (10:07)
[2024-02-03] MEDS ORDERED: MIDAZOLAM HCL 2 MG/2 ML SINGLE DOSE VIAL ONE (10:08)
[2024-02-03] MEDS ORDERED: PROPOFOL 20 ML ONE (10:08)
[2024-02-03] MEDS: PIPERACILLIN/TAZOBACTAM 3.375 GM VIAL IVPB ONE (10:15)
[2024-02-03] MEDS: PIPERACILLIN/TAZOB 3.375 GM 3.375 GM in DEXTROSE 5%-WATER - 50 ML IVPB SCH ×2 (10:47→11:32)
[2024-02-03] MEDS: VANCOMYCIN 1,000 MG in DEXTROSE 5%-WATER - 250 ML IVPB SCH ×2 (11:28→12:48)
[2024-02-03] MEDS: MUPIROCIN 2% TOPICAL OINTMENT FOR DECOLONIZATION NS SCH (11:29)
[2024-02-03] MEDS: LACTATED RINGERS SOLUTION 1,000 ML IV SCH (11:29)
[2024-02-03] MEDS ORDERED: VANCOMYCIN/WATER FOR INJ (PEG) 1,000 MG/200 ML BAG IVPB SCH ×2 (15:00)
[2024-02-03] MEDS: VANCOMYCIN/WATER FOR INJ (PEG) 1,000 MG/200 ML BAG IVPB SCH (15:31)
[2024-02-03] MEDS: BICTEGRAV/EMTRICIT/TENOFOV (BIKTARVY) 50-200-25 MG TABLET PO ONE (17:32)
[2024-02-03] MEDS ORDERED: PIPERACILLIN/TAZOB 3.375 GM 3.375 GM in DEXTROSE 5%-WATER - 50 ML IVPB SCH (18:00)
[2024-02-03] MEDS ORDERED: MUPIROCIN 2% TOPICAL OINTMENT FOR DECOLONIZATION NS SCH (22:00)
[2024-02-03] MEDS ORDERED: VANCOMYCIN 1,000 MG in DEXTROSE 5%-WATER - 250 ML IVPB SCH (22:00)
[2024-02-04 08:12] LABS: BASO % 0.8 % (0-2.0); EOS % 0.6 % (0-4.5); HEMATOCRIT 35.9 % (35.4-49); HEMOGLOBIN 12.1 GM/dL (11.7-16.9); LYMPH % 32.2 % (8-40); MCH 28.9 pg (25.7-33.7); MCHC 33.8 g/dl (32.0-35.9); MEAN CELL VOLUME 85.7 fl (80-96); MEAN PLT VOLUME 7.2 fl (7.5-11.1); MONO % 6.5 % (3.8-10.2); NEUT % 59.9 % (42.8-82.8); PLATELET COUNT 422 10^3/uL (134-434); RBC 4.19 M/mm3 (4.00-5.60); RDW 13.6 % (11.9-15.9); WHITE BLOOD COUNT 7.7 K/mm3 (4.0-10.0)
[2024-02-04 08:29] LABS: POTASSIUM 4.4 mmol/L (3.5-5.1)
[2024-02-04 08:36] LABS: BLOOD UREA NITROGEN 9.7 mg/dL (7-18); CALCIUM 8.5 mg/dL (8.5-10.1)
[2024-02-04 08:39] LABS: CREATININE 0.7 mg/dL (0.55-1.3)
[2024-02-04] MEDS: BICTEGRAV/EMTRICIT/TENOFOV (BIKTARVY) 50-200-25 MG TABLET PO SCH (10:00)
[2024-02-04] MEDS ORDERED: ACETAMINOPHEN 325 MG TABLET (FP) PO PRN (16:29)
[2024-02-05] MEDS: traMADol HCL 50 MG TABLET PO PRN (02:08)
[2024-02-05 14:11] VITALS: RESP 18
[2024-02-06 07:02] VITALS: BP 102/64; PULSE 60; TEMP 97.9
== END 2024-02-06 10:04 | disposition home or self-care (01) | DRG 710 ==
LOC: JER 00:20 → JERBED 01:26 → J8W 04:26
PROVIDERS: ADMIT Internal Medicine; ATTEND Nurse Practitioner Family
PROC: 0JBM0ZZ Excision of Left Upper Leg Subcutaneous Tissue and Fascia, Open Approach (ICD-10-PCS; 2024-02-03)
PROC: 0J9M0ZZ Drainage of Left Upper Leg Subcutaneous Tissue and Fascia, Open Approach (ICD-10-PCS; principal; 2024-02-03 08:30)
DX: L02.416 Cutaneous abscess of left lower limb (principal); B20 Human immunodeficiency virus [HIV] disease; L08.9 Local infection of the skin and subcutaneous tissue, unspecified; A49.02 Methicillin resistant Staphylococcus aureus infection, unspecified site; M25.552 Pain in left hip
CPT/HCPCS: 36415; 73702-TC-RT; 80048; 80053; 81003; 85025; 85027; 85651; 86140; 87040; 87070; 87186; 87205; 88304-TC; 94760; 99285-25; G0480; J0131; Q9967

== ENCOUNTER 2024-04-17 10:40 | Inpatient (IN) | payer OTHER ==
[2024-04-17] MEDS ORDERED: MAG HYDROX/AL HYDROX/SIMETH 30 ML UNIT-DOSE CUP ONE (12:20)
[2024-04-17] MEDS ORDERED: FAMOTIDINE 20 MG/50 ML IVPB 20 MG/50 ML MG IVPB ONE (12:20)
[2024-04-17] MEDS: FAMOTIDINE 20 MG/50 ML IVPB 20 MG/50 ML MG IVPB ONE (12:30)
[2024-04-17] MEDS: SODIUM CHLORIDE 0.9% 500 ML INFUS.BAG IV ONE ×2 (12:30→15:20)
[2024-04-17] MEDS ORDERED: LIDOCAINE VISCOUS 2% ORAL/TOP 15 ML UNIT-DOSE CUP ONE (12:36)
[2024-04-17] MEDS: LIDOCAINE VISCOUS 2% ORAL/TOP 15 ML UNIT-DOSE CUP MM ONE (12:38)
[2024-04-17] MEDS: MAG HYDROX/AL HYDROX/SIMETH 30 ML UNIT-DOSE CUP PO ONE (12:38)
[2024-04-17 12:43] LABS: BASO % 0.1 % (0-2.0); EOS % 0.1 % (0-4.5); EPI CELLS >36 /uL (0-25.1); HEMATOCRIT 35.8 % (35.4-49); HEMOGLOBIN 12.3 GM/dL (11.7-16.9); HYALINE CASTS 21 /uL (0-3.1); LYMPH % 9.4 % (8-40); MCH 28.4 pg (25.7-33.7); MCHC 34.5 g/dl (32.0-35.9); MEAN CELL VOLUME 82.4 fl (80-96); MEAN PLT VOLUME 7.2 fl (7.5-11.1); MONO % 7.3 % (3.8-10.2); NEUT % 83.1 % (42.8-82.8); PLATELET COUNT 339 10^3/uL (134-434); RBC 4.34 M/mm3 (4.00-5.60); RDW 14.1 % (11.9-15.9); URINE APPEARANCE TURBID; URINE BILIRUBIN 1+ (NEGATIVE); URINE COLOR DK YELLOW; URINE GLUCOSE (UA) NEGATIVE (NEGATIVE); URINE KETONE TRACE (NEGATIVE); URINE LEUK ESTERASE TRACE (NEGATIVE); URINE NITRITE NEGATIVE (NEGATIVE); URINE PROTEIN 1+ (NEGATIVE); URINE RBC 14 /uL (0-23.9); URINE WBC 95 /uL (0-25.8); WHITE BLOOD COUNT 7.6 K/mm3 (4.0-10.0)
[2024-04-17 13:07] LABS: POTASSIUM 3.9 mmol/L (3.5-5.1)
[2024-04-17 13:09] LABS: CALCIUM 8.8 mg/dL (8.5-10.1)
[2024-04-17 13:10] LABS: ALBUMIN 3.1 g/dl (3.4-5.0)
[2024-04-17 13:13] LABS: CREATININE 2.2 mg/dL (0.55-1.3)
[2024-04-17 13:14] LABS: BILIRUBIN,TOTAL 0.9 mg/dL (0.2-1); TOT PROT 8.8 g/dl (6.4-8.2)
[2024-04-17 15:06] LABS: URINE BACTERIA 5.2 /uL (0-1359)
[2024-04-17] MEDS: SODIUM CHLORIDE 1,000 ML IV SCH (19:57)
[2024-04-17] MEDS ORDERED: ACETAMINOPHEN INJECTION 100 ML IVPB ONE (23:48)
[2024-04-17] MEDS: ACETAMINOPHEN 1000 MG/100 ML BAG IVPB ONE (23:55)
[2024-04-18] MEDS: MELATONIN 5 MG TABLETS PO ONE (04:53)
[2024-04-18 07:31] LABS: HEMOGLOBIN 10.3 GM/dL (11.7-16.9); MCH 28.9 pg (25.7-33.7); MCHC 34.2 g/dl (32.0-35.9); MEAN CELL VOLUME 84.6 fl (80-96); MEAN PLT VOLUME 7.7 fl (7.5-11.1); PLATELET COUNT 294 10^3/uL (134-434); RBC 3.55 M/mm3 (4.00-5.60); RDW 14.5 % (11.9-15.9); WHITE BLOOD COUNT 6.7 K/mm3 (4.0-10.0)
[2024-04-18 07:43] LABS: INR 1.24 (0.83-1.09); PROTHROMBIN TIME (PATIENT) 14.2 SEC (9.7-13.0)
[2024-04-18 07:44] LABS: ACTIVATED PTT 34.3 SECONDS (25.2-36.5)
[2024-04-18 07:45] LABS: POTASSIUM 4.3 mmol/L (3.5-5.1)
[2024-04-18 07:52] LABS: CALCIUM 7.8 mg/dL (8.5-10.1)
[2024-04-18 07:53] LABS: MAGNESIUM 2.4 mg/dL (1.8-2.4)
[2024-04-18 07:56] LABS: ALBUMIN 2.2 g/dl (3.4-5.0); CREATININE 1.3 mg/dL (0.55-1.3); PHOSPHOROUS 2.3 mg/dL (2.5-4.9)
[2024-04-18 07:57] LABS: BILIRUBIN,TOTAL 0.5 mg/dL (0.2-1)
[2024-04-18 07:58] LABS: TOT PROT 6.7 g/dl (6.4-8.2)
[2024-04-18] MEDS ORDERED: ACETAMINOPHEN 325 MG TABLET (FP) ONE (10:15)
[2024-04-18] MEDS: ACETAMINOPHEN 325 MG TABLET (FP) PO PRN (10:20)
[2024-04-18] MEDS: CHOLECALCIFEROL (VIT D3) 1,000 UNIT (25 MCG) TABLET PO SCH (10:25)
[2024-04-18] MEDS: ARIPiprazole 10 MG TABLET PO SCH (10:25)
[2024-04-18] MEDS ORDERED: hydrOXYzine PAMOATE 25 MG CAPSULE (FP) PO PRN (13:16)
[2024-04-18 15:21] VITALS: BMI 21.4
[2024-04-18] MEDS: BICTEGRAV/EMTRICIT/TENOFOV (BIKTARVY) 50-200-25 MG TABLET PO SCH (16:10)
[2024-04-19] MEDS ORDERED: IBUPROFEN 400 MG TABLET (FP) PO PRN (07:06)
[2024-04-19] MEDS ORDERED: LACTATED RINGERS SOLUTION 1,000 ML/1,000 ML INFUS.BAG IV SCH (07:15)
[2024-04-19] MEDS: IBUPROFEN 400 MG TABLET (FP) PO ONE (07:16)
[2024-04-19] MEDS: SODIUM CHLORIDE 1,000 ML IV SCH (07:27)
[2024-04-19 09:11] LABS: BASO % 0.4 % (0-2.0); HEMATOCRIT 32.3 % (35.4-49); HEMOGLOBIN 10.9 GM/dL (11.7-16.9); MCH 28.6 pg (25.7-33.7); MCHC 33.7 g/dl (32.0-35.9); MEAN CELL VOLUME 84.7 fl (80-96); MEAN PLT VOLUME 7.9 fl (7.5-11.1); MONO % 6.4 % (3.8-10.2); NEUT % 87.2 % (42.8-82.8); PLATELET COUNT 394 10^3/uL (134-434); RBC 3.82 M/mm3 (4.00-5.60); RDW 14.8 % (11.9-15.9); WHITE BLOOD COUNT 10.5 K/mm3 (4.0-10.0)
[2024-04-19 09:25] LABS: CHLORIDE 102 mmol/L (98-107); POTASSIUM 4.3 mmol/L (3.5-5.1); SODIUM 134 mmol/L (136-145)
[2024-04-19 09:27] LABS: ANION GAP 9 mmol/L (4-13); BLOOD UREA NITROGEN 10.9 mg/dL (7-18); CALCIUM 7.5 mg/dL (8.5-10.1); CO2 24 mmol/L (21-32); GLUCOSE,RANDOM 121 mg/dL (74-106)
[2024-04-19 09:28] LABS: ALBUMIN 2.1 g/dl (3.4-5.0)
[2024-04-19 09:30] LABS: CREATININE 1.2 mg/dL (0.55-1.3); SGOT/AST 38 U/L (15-37); SGPT/ALT 27 U/L (13-61)
[2024-04-19 09:32] LABS: BILIRUBIN,TOTAL 0.7 mg/dL (0.2-1)
[2024-04-19 09:36] LABS: ALK PHOS 117 U/L (45-117)
[2024-04-19 09:55] LABS: ERYTHROCYTE SEDIMENTATION RATE 96 mm/hr (0-10)
[2024-04-19] MEDS: FAMOTIDINE 20 MG TABLET PO SCH (10:01)
[2024-04-19] MEDS: PIPERACILLIN/TAZOB 3.375 GM 3.375 GM in DEXTROSE 5%-WATER - 50 ML IVPB SCH ×2 (11:37→16:11)
[2024-04-19] MEDS: AMPICILLIN NA/SULBACTAM NA 3 GM in SODIUM CHLORIDE 100 ML IVPB SCH (14:51)
[2024-04-19 15:10] LABS: SYPHILIS W/ RPR CONF REACTIVE (NONREACTIVE)
[2024-04-19] MEDS: DOXYCYCLINE INJECTION 100 MG in DEXTROSE 5%-WATER 100 ML IVPB SCH (21:17)
[2024-04-20] MEDS: ACETAMINOPHEN 1000 MG/100 ML BAG IVPB SCH (11:32)
[2024-04-20 12:52] LABS: HEMATOCRIT 30.7 % (35.4-49); HEMOGLOBIN 10.3 GM/dL (11.7-16.9); MCH 28.2 pg (25.7-33.7); MCHC 33.4 g/dl (32.0-35.9); MEAN CELL VOLUME 84.4 fl (80-96); PLATELET COUNT 408 10^3/uL (134-434); RBC 3.64 M/mm3 (4.00-5.60); RDW 15.2 % (11.9-15.9); WHITE BLOOD COUNT 11.4 K/mm3 (4.0-10.0)
[2024-04-20 13:25] LABS: ANISOCYTOSIS 0; MACROCYTOSIS 0
[2024-04-21 09:44] LABS: HEMATOCRIT 30.9 % (35.4-49); HEMOGLOBIN 10.6 GM/dL (11.7-16.9); MCH 28.7 pg (25.7-33.7); MCHC 34.1 g/dl (32.0-35.9); MEAN CELL VOLUME 83.9 fl (80-96); PLATELET COUNT 468 10^3/uL (134-434); RBC 3.68 M/mm3 (4.00-5.60); RDW 15.2 % (11.9-15.9); WHITE BLOOD COUNT 7.2 K/mm3 (4.0-10.0)
[2024-04-21 10:16] LABS: POTASSIUM 3.8 mmol/L (3.5-5.1)
[2024-04-21 10:22] LABS: BLOOD UREA NITROGEN 8.5 mg/dL (7-18); CALCIUM 8.2 mg/dL (8.5-10.1)
[2024-04-21] MEDS: KETOROLAC TROMETHAMINE 30 MG/1 ML VIAL IVPUSH ONE (11:43)
[2024-04-21] MEDS: MELATONIN 5 MG TABLETS PO PRN (23:56)
[2024-04-22 09:29] LABS: BASO % 1.1 % (0-2.0); EOS % 0.9 % (0-4.5); HEMATOCRIT 31.9 % (35.4-49); HEMOGLOBIN 10.7 GM/dL (11.7-16.9); LYMPH % 24.3 % (8-40); MCH 28.6 pg (25.7-33.7); MCHC 33.5 g/dl (32.0-35.9); MEAN CELL VOLUME 85.3 fl (80-96); MEAN PLT VOLUME 7.2 fl (7.5-11.1); MONO % 6.4 % (3.8-10.2); NEUT % 67.3 % (42.8-82.8); PLATELET COUNT 545 10^3/uL (134-434); RBC 3.74 M/mm3 (4.00-5.60); RDW 14.9 % (11.9-15.9); WHITE BLOOD COUNT 7.3 K/mm3 (4.0-10.0)
[2024-04-22 09:45] LABS: BLOOD UREA NITROGEN 7.1 mg/dL (7-18); CALCIUM 8.2 mg/dL (8.5-10.1)
[2024-04-22] MEDS: SIMETHICONE 80 MG TAB.CHEW (FP) PO ONE (10:47)
[2024-04-22] MEDS: POLYETHYLENE GLYCOL (HEALTHYLAX) 3350 17 GM PACKET PO PRN (17:32)
[2024-04-22] MEDS ORDERED: DOXYCYCLINE HYCLATE 100 MG VIAL ONE (21:06)
[2024-04-22] MEDS ORDERED: POLYETHYLENE GLYCOL (HEALTHYLAX) 3350 17 GM PACKET PO SCH (22:00)
[2024-04-23 09:09] LABS: POTASSIUM 3.9 mmol/L (3.5-5.1)
[2024-04-23 09:12] LABS: BASO % 0.7 % (0-2.0); EOS % 0.5 % (0-4.5); HEMATOCRIT 30.1 % (35.4-49); HEMOGLOBIN 10.4 GM/dL (11.7-16.9); MCH 28.8 pg (25.7-33.7); MCHC 34.5 g/dl (32.0-35.9); MEAN CELL VOLUME 83.6 fl (80-96); MEAN PLT VOLUME 7.1 fl (7.5-11.1); MONO % 7.9 % (3.8-10.2); NEUT % 63.9 % (42.8-82.8); PLATELET COUNT 552 10^3/uL (134-434); RDW 14.9 % (11.9-15.9); WHITE BLOOD COUNT 5.5 K/mm3 (4.0-10.0)
[2024-04-23 09:33] LABS: BLOOD UREA NITROGEN 4.1 mg/dL (7-18); CALCIUM 7.7 mg/dL (8.5-10.1)
[2024-04-23 09:34] LABS: ALBUMIN 1.7 g/dl (3.4-5.0)
[2024-04-23 09:37] LABS: CREATININE 0.8 mg/dL (0.55-1.3)
[2024-04-23 09:39] LABS: BILIRUBIN,TOTAL 0.5 mg/dL (0.2-1); TOT PROT 6.5 g/dl (6.4-8.2)
[2024-04-23] MEDS: SIMETHICONE 80 MG TAB.CHEW (FP) PO PRN (10:56)
[2024-04-23 12:08] LABS: % CD 4 POS. LYMPH. 17.5 % (30.8-58.5); % CD 8 POS. LYMPH. 47.6 % (12.0-35.5); ABS. CD8 SUPPRESSOR 857 /uL (109-897); ABSOLUTE CD 4 HELPER 315 /uL (359-1519); EOSINOPHIL(ABSOLUTE) 0.1 x10E3/uL (0.0-0.4); HEMATOCRIT 32.7 % (37.5-51.0); HEMOGLOBIN 10.8 g/dL (13.0-17.7); LYMPHS (ABSOLUTE) 1.8 x10E3/uL (0.7-3.1); MCH 27.6 pg (26.6-33.0); PLATELET COUNT 563 x10E3/uL (150-450); RBC 3.91 x10E6/uL (4.14-5.80); RDW 13.3 % (11.6-15.4)
[2024-04-23 16:14] LABS: N-TERMINAL BNP 775.3 pg/ml (5-125)
[2024-04-23] MEDS: HYDROCORTISONE 2.5% TOPICAL CREAM 30 GM TUBE RC SCH (21:27)
[2024-04-24 06:36] VITALS: BP 128/84; PULSE 58; RESP 20; TEMP 98.2
[2024-04-24 09:53] LABS: EOS % 0.6 % (0-4.5); HEMATOCRIT 33.5 % (35.4-49); HEMOGLOBIN 11.2 GM/dL (11.7-16.9); LYMPH % 36.7 % (8-40); MCH 28.3 pg (25.7-33.7); MCHC 33.5 g/dl (32.0-35.9); MEAN CELL VOLUME 84.3 fl (80-96); MEAN PLT VOLUME 6.8 fl (7.5-11.1); MONO % 5.6 % (3.8-10.2); NEUT % 56.1 % (42.8-82.8); PLATELET COUNT 645 10^3/uL (134-434); RBC 3.97 M/mm3 (4.00-5.60); RDW 14.8 % (11.9-15.9); WHITE BLOOD COUNT 5.2 K/mm3 (4.0-10.0)
[2024-04-24 10:14] LABS: POTASSIUM 4.1 mmol/L (3.5-5.1)
[2024-04-24 10:20] LABS: BLOOD UREA NITROGEN 4.4 mg/dL (7-18)
[2024-04-24 10:24] LABS: CALCIUM 8.8 mg/dL (8.5-10.1)
[2024-04-24 10:25] LABS: TOT PROT 7.5 g/dl (6.4-8.2)
[2024-04-24 10:26] LABS: CREATININE 0.9 mg/dL (0.55-1.3)
[2024-04-24 10:28] LABS: BILIRUBIN,TOTAL 0.4 mg/dL (0.2-1)
== END 2024-04-24 09:39 | disposition home or self-care (01) | DRG 249 ==
LOC: JER 10:40 → JERBED 17:38 → OBSVTOIN 18:01 → J8W 04-18 13:28
PROVIDERS: ADMIT Internal Medicine; ATTEND Nurse Practitioner Family
DX: K52.9 Noninfective gastroenteritis and colitis, unspecified (principal); N17.9 Acute kidney failure, unspecified; K62.89 Other specified diseases of anus and rectum; R31.29 Other microscopic hematuria; Z21 Asymptomatic human immunodeficiency virus [HIV] infection status; E86.0 Dehydration; A53.9 Syphilis, unspecified; R80.9 Proteinuria, unspecified; F41.9 Anxiety disorder, unspecified; D64.9 Anemia, unspecified; R50.9 Fever, unspecified
CPT/HCPCS: 0241U-QW; 36415; 71045-TC-FY; 74018-TC-FY; 74177-TC; 76775-TC; 76856-TC; 80048; 80053; 80061; 81003; 82308; 82570; 83690; 83735; 83880; 84100; 84300; 84484; 85025; 85027; 85610; 85651; 85730; 86140; 86360; 86593; 86704; 86706; 86708; 86780; 86803; 87040; 87045; 87046; 87086; 87207; 87209; 87328; 87329; 87340; 87517; 87536; 87798; 93005; 93010; 93306-TC; 99285-25; G0378; J0131; Q9967

== ENCOUNTER 2024-10-03 22:33 | Emergency (ER) | payer OTHER ==
[2024-10-03 22:41] VITALS: TEMP 98.5; BMI 21.7
[2024-10-03 23:14] LABS: BASO % 0.8 % (0-2.0); EOS % 0.2 % (0-4.5); HEMATOCRIT 38.5 % (35.4-49); HEMOGLOBIN 13.4 GM/dL (11.7-16.9); LYMPH % 26.7 % (8-40); MCH 29.4 pg (25.7-33.7); MCHC 34.8 g/dl (32.0-35.9); MEAN CELL VOLUME 84.7 fl (80-96); MEAN PLT VOLUME 7.6 fl (7.5-11.1); MONO % 7.4 % (3.8-10.2); NEUT % 64.9 % (42.8-82.8); PLATELET COUNT 293 10^3/uL (134-434); RBC 4.55 M/mm3 (4.00-5.60); RDW 13.8 % (11.9-15.9); WHITE BLOOD COUNT 7.9 K/mm3 (4.0-10.0)
[2024-10-03] MEDS: VANCOMYCIN 1,000 MG in DEXTROSE 5%-WATER - 250 ML IVPB ONE (23:40)
[2024-10-03] MEDS ORDERED: VANCOMYCIN 1 GM PREMIX (F) 1 GM/200 ML BAG ONE (23:41)
[2024-10-04 00:54] LABS: POTASSIUM 3.4 mmol/L (3.5-5.1)
[2024-10-04 00:56] LABS: ALBUMIN 3.8 g/dl (3.4-5.0); CALCIUM 8.9 mg/dL (8.5-10.1)
[2024-10-04 00:57] LABS: BLOOD UREA NITROGEN 16.4 mg/dL (7-18)
[2024-10-04 01:00] LABS: CREATININE 1.1 mg/dL (0.55-1.3)
[2024-10-04 01:01] LABS: BILIRUBIN,TOTAL 1.1 mg/dL (0.2-1); TOT PROT 8.7 g/dl (6.4-8.2)
[2024-10-04] MEDS ORDERED: ACETAMINOPHEN INJECTION 100 ML ONE (02:00)
[2024-10-04] MEDS: ACETAMINOPHEN 1000 MG/100 ML BAG IVPB ONE (02:03)
[2024-10-04 04:30] VITALS: BP 112/74; PULSE 81; RESP 16
== END 2024-10-04 04:35 | disposition short-term general hospital (02) ==
LOC: JER 22:33
PROC: 3E03329 Introduction of Other Anti-infective into Peripheral Vein, Percutaneous Approach (ICD-10-PCS; principal; 2024-10-04)
PROC: 3E033NZ Introduction of Analgesics, Hypnotics, Sedatives into Peripheral Vein, Percutaneous Approach (ICD-10-PCS; 2024-10-04)
DX: L03.211 Cellulitis of face (principal); L02.01 Cutaneous abscess of face; R22.0 Localized swelling, mass and lump, head
CPT/HCPCS: 36415; 70487-TC; 80053; 85025; 87070; 87186; 87205; 99285-25; J0131; Q9967